=== PATIENT | male | born 1995 | race Caucasian/White ===

== ENCOUNTER → 2017-01-13 | Outpatient (CLI) | payer OTHER ==
--- NOTE | 2017-01-13 13:00 | DIAGNOSTIC IMAGING REPORT ---
RIGHT ANKLE MIN 3 VIEWS CLINICAL HISTORY: Right ankle pain. Trauma. COMPARISON: None. DISCUSSION: No acute fractures or dislocations are visualized. There is mild lateral soft tissue swelling. IMPRESSION: Mild soft tissue swelling. No fractures or dislocations are visualized. Electronically signed by: Corbin Zuniga M.D. 01/13/2017 12:59 PM Dictated Date/Time: 01/13/2017 12:58 PM
== END | disposition home or self-care (01) ==
LOC: C.RDSM 12:45
PROVIDERS: ATTEND Orthopaedic Surgery
DX: M25.571 Pain in right ankle and joints of right foot (principal)

== ENCOUNTER → 2017-01-16 | Outpatient (CLI) | payer OTHER ==
--- NOTE | 2017-01-16 09:16 | DIAGNOSTIC IMAGING REPORT ---
RIGHT ANKLE MRI HISTORY: RIGHT ANKLE PAIN AND DISTAL FIB FRACTURE Right TECHNIQUE: Multiplanar multisequence MRI of the right ankle was performed without the use of contrast. COMPARISON STUDY: Right ankle 01/13/2017. FINDINGS: There is diffuse subcutaneous edema surrounding the ankle. No acute fracture or dislocation. There is marrow edema along the medial aspect of the talus. Partial tear of the deltoid ligament. Full-thickness tear of the anterior talofibular and calcaneofibular ligaments. The flexor, extensor, peroneal, and Achilles tendons are normal in course, caliber, and signal intensity. Trace ankle effusion. The plantar fascia and sinus is intact. Mild edema within the distal peroneus muscles consistent with a grade I muscular strain. There is also fluid surrounding the distal peroneus longus tendon consistent with a tenosynovitis. IMPRESSION: 1. No fracture or dislocation within the right ankle. 2. Medial and lateral ankle ligament sprains as described above. 3. Subcutaneous edema and a trace ankle effusion. 4. Grade I muscular strain within the distal peroneus muscles. 5. Mild tenosynovitis involving the distal peroneus longus. Electronically signed by: Lázaro Koehler M.D. 01/16/2017 9:14 AM Dictated Date/Time: 01/16/2017 9:05 AM
== END | disposition home or self-care (01) ==
LOC: C.MRI 07:52
PROVIDERS: ATTEND Family Medicine
DX: S93.401A Sprain of unspecified ligament of right ankle, initial encounter (principal); S96.911A Strain of unspecified muscle and tendon at ankle and foot level, right foot, initial encounter; X58.XXXA Exposure to other specified factors, initial encounter

== ENCOUNTER → 2017-07-01 | Outpatient (CLI) | payer OTHER | END | disposition home or self-care (01) | LOC: C.RDSM 06-24 12:11 | PROVIDERS: ATTEND Family Medicine | DX: M25.552 Pain in left hip (principal) ==